=== PATIENT | female | born 1965 ===

== ENCOUNTER 2023-07-15 06:30 | Day surgery (SDC) | payer OTHER ==
[~2023-07-15] VITALS: Ht 177.8 cm; Wt 141.8 kg
[~2023-07-15 06:30] MED LIST: CARAFATE1 GM PO; COLESTIPOL HCL1 GM PO; DICLOFENAC SODI75 MG PO; LEVOTHYROXINE200 MCG PO; LEXAPRO20 MG PO; LIPITOR40 MG PO; METFORMIN HCL1000 M1 PO; OMEPRAZOLE20 MG PO; TRAZODONE HCL100 MG PO; VICTOZA 2-0.6 MG/0.1 SUB-Q
[2023-07-15 06:48] VITALS: BP 141/95
[2023-07-15] MEDS ORDERED: OZEMPIC1 MG/0.71 SQ (06:55)
[2023-07-15] MEDS ORDERED: PERCOCET 5-3251 EACH PO (06:56)
--- NOTE | 2023-07-15 08:15 | NUR ---
07/15/23 0815 Vannessa Sifuentes 0810: PT ARRIVES TO PACU AWAKE AND ALERT. NO COMPLAINTS OF PAIN OR NAUSEA. SHE IS ENCOURGAED TO COUGH AND DEEP BREATH. O2 SAT ON 3L VIA NC 90-92%.
[2023-07-15 08:58] VITALS: BP 163/96
--- NOTE | 2023-07-15 11:43 | OR ---
[facility] [address] [place], [place] [address] Signed DATE OF OPERATION: 07/15/2023 SURGEON: Folry Thrasher MD PREOPERATIVE DIAGNOSES: 1. Gastroesophageal reflux. 2. Colon screening. POSTOPERATIVE DIAGNOSES: 1. Hiatal hernia with distal esophagitis and focus of Griffin's epithelium. 2. Mild proximal gastritis. 3. Polyps x2 of sigmoid colon. PROCEDURES: 1. Esophagogastroduodenoscopy with biopsy. 2. Total colonoscopy to cecum with cold morcellation polypectomy x2. ANESTHESIA: Intravenous sedation; fentanyl 150 mcg, Versed 6 mg. INDICATION: This 58-year-old white woman is a patient of Fred Ramirez. She is referred for upper endoscopy and colonoscopy on the basis of long-standing gastroesophageal reflux. She currently takes PPI medication daily. Additionally, she has had fecal urgency of unknown origin, considered to have diabetes. She does use metformin. She is obese at 312 pounds with BMI of 44.8. She occasionally has left lower abdominal pain as well. She is admitted at this time to undergo upper endoscopy and colonoscopy. She understands the risk of bleeding, infection, and perforation. FINDINGS: Upper endoscopy confirmed a hiatal hernia as well as mild distal esophagitis and a focus of Griffin's epithelium. There was proximal gastritis as well. CLOtest was negative 30 minutes post procedure. On colonoscopy, the prep was quite good. Complete colonoscopy was undertaken with intubation of the cecum. There were two very small polyps in the sigmoid, which were excised. DESCRIPTION OF PROCEDURE: The patient was brought to the endoscopy suite and placed in the lateral decubitus Electronically Signed By: FLORY THRASHER MD 07/15/23 1143 PATIENT NAME: GE MARI OPERATIVE REPORT DATE OF : 67 REPORT #: [id number] PHYSICIAN: FLORY THRASHER MD PCP: FRED RAMIREZ PA-C REPORT IS CONFIDENTIAL AND NOT TO BE RELEASED WITHOUT AUTHORIZATION [facility] [address] [place], [place] [address] Signed position, given topical lidocaine anesthesia. Intravenous sedation was administered with full cardiopulmonary monitoring. A bite block was placed. An Olympus video upper endoscope was passed in the hypopharynx. The vocal cords appeared normal. The scope was advanced to the esophagus. Throughout its length, it was normal except in the distal portion where there was a small focus suggestive of Griffin's epithelium. The scope was advanced to the stomach which was insufflated with air. Rugal folds were normal. There was proximal gastritis apparent. The antrum itself was normal. Pylorus was normal. Scope was passed through into the duodenum, which was normal. Biopsies were taken of the duodenum. The scope was withdrawn. Biopsies were taken of more proximal stomach for both APARNA and pathologic testing. Retroflexed view confirmed a hiatal hernia. The scope was withdrawn to the distal esophagus and biopsies taken of that mucosa including the focus of Rgiffin's. The scope was further withdrawn and biopsies were then taken of the mid esophagus. It appeared normal otherwise. The scope was removed. Plans were then made for colonoscopy. Additional sedation was given. A digital rectal examination performed showing no sign of neoplasm. An Olympus video colonoscope was passed in the rectum and manipulated throughout the colon ultimately intubating the cecum itself. The ileocecal valve and appendiceal orifice were normal. The prep was quite good. The scope was withdrawn from that point and examination showed no sign of abnormality until the sigmoid where two small adenomatous appearing polyps were noted. They were both excised with cold morcellation technique and passed in the same container. Further withdrawal allowed for retroflexed view of the rectum, which was normal. Scope was straightened, withdrawn and removed. The patient was taken to the recovery room in good condition. CONCLUDING DIAGNOSES: 1. Proximal gastritis, distal esophagitis and hiatal hernia. 2. Polyps x2 sigmoid. PLAN: Recommend continued use of PPI daily and weight loss efforts. Would consider Carafate 1 g p.o. q.i.d. for four weeks. Would recommend repeat colonoscopy in three years based on findings of two small adenomatous appearing polyps. She will return to the ongoing care of YAMEL Valadez. Flory Thrasher MD Electronically Signed By: FLORY THRASHER MD 07/15/23 1143 PATIENT NAME: GE MARI OPERATIVE REPORT DATE OF : 67 REPORT #: [id number] PHYSICIAN: FLORY THRASHER MD PCP: FRED RAMIREZ PA-C REPORT IS CONFIDENTIAL AND NOT TO BE RELEASED WITHOUT AUTHORIZATION [facility] [address] [facility] [place], [place] [address] [facility] /[id number] cc: YAMEL Valadez Copies: ~ Electronically Signed By: FLORY THRASHER MD 07/15/23 1143 PATIENT NAME: GE MARI OPERATIVE REPORT DATE OF : 67 REPORT #: [id number] PHYSICIAN: FLORY THRASHER MD PCP: FRED RAMIREZ PA-C REPORT IS CONFIDENTIAL AND NOT TO BE RELEASED WITHOUT AUTHORIZATION
--- NOTE | 2023-07-20 14:59 | PATH ---
[facility] [address] [place], [place] [address] Signed SPECIMEN(S): A DUODENAL BIOPSY SPECIMEN(S): B PROXIMAL STOMACH BIOPSY SPECIMEN(S): C LOWER ESOPHAGEAL BIOPSY SPECIMEN(S): D UPPER ESOPHAGEAL BIOPSY SPECIMEN(S): E SIGMOID POLYP SPECIMEN SOURCE: A. DUODENAL BIOPSY B. PROXIMAL STOMACH BIOPSY C. LOWER ESOPHAGEAL BIOPSY D. UPPER ESOPHAGEAL BIOPSY E. SIGMOID POLYP CLINICAL HISTORY: GERD, hx of malignant neoplasm in colon. Hiatal hernia. Griffin's esophagus. Polyps vs sigmoid. FINAL PATHOLOGIC DIAGNOSIS: A. Duodenal biopsy: - Benign duodenal mucosa, negative for specific diagnostic abnormality. B. Proximal stomach biopsy: - Benign gastric-type mucosa with focal slight chronic inflammation. - Negative for evidence of Helicobacter organisms on routine HE-stained sections. C. Lower esophageal biopsy: - Esophageal and gastric-type mucosa with specialized intestinal (goblet cell) metaplasia, negative for dysplasia. D. Upper esophageal biopsy: - Benign esophageal mucosa, negative for increased intraepithelial eosinophils. E. Sigmoid polyp: - Hyperplastic polyp (multiple fragments). JR:ree MICROSCOPIC EXAMINATION: Histologic sections of all submitted blocks are examined by light microscopy. These findings, together with the gross examination, support the pathologic diagnosis. GROSS DESCRIPTION: A. The specimen, labeled and designated "Nicole Perrin, duodenum biopsy," is PATIENT NAME: [facility] DATE OF : 67 REPORT #: [id number] PHYSICIAN: [facility] PCP: FRED RAMIREZ PA-C REPORT IS CONFIDENTIAL AND NOT TO BE RELEASED WITHOUT AUTHORIZATION [facility] [address] [place], [place] [address] Signed received in formalin and consists of three perales soft tissue fragments measuring 0.2 x 0.5 cm in greatest dimension, all specimens are submitted entirely in (A1). B. The specimen, labeled and designated "Nicole Perrin, proximal stomach biopsy," is received in formalin and consists of one perales soft tissue fragment measuring 0.4 x 0.5 cm and is submitted entirely in (B1). C. The specimen, labeled and designated "Nicole Perrin, lower esophagus biopsy," is received in formalin and consists of two perales soft tissue fragments measuring 0.4 x 0.4 cm in greatest dimension, both specimens are submitted entirely in (C1). D. The specimen, labeled and designated "Nicole ePrrin, upper esophagus biopsy," is received in formalin and consists of four white soft tissue fragment measuring 0.3 x 0.8 cm in greatest dimension, all specimens are submitted entirely in (D1). E. The specimen, labeled and designated "Nicole Perrin, colon, sigmoid polypectomy," is received in formalin and consists of three perales soft tissue fragments measuring 0.3 x 0.5 cm in greatest dimension, all specimens are submitted entirely in (E1). MMA (under the direct supervision of a pathologist) The Gross Description was prepared using a voice recognition system. The report was reviewed for accuracy; however, sound-alike word errors, addition and/or deletions may occur. If there is any question about this report, please contact Client Services. PERFORMING LABORATORY: Technical component was performed by [facility], [address] [place] [id number] (CLIA# [id number]). Professional interpretation was performed by [facility] - [facility], [address] [place] [address], [place] [address] (CLIA#: [id number]). Diagnostician: Sean Weaver MD Pathologist Electronically Signed 07/20/2023 Copies: ~ PATIENT NAME: GE [facility]ERRIN [facility] DATE OF : 67 REPORT #: [id number] PHYSICIAN: [facility] PCP: FRED RAMIREZ PA-C REPORT IS CONFIDENTIAL AND NOT TO BE RELEASED WITHOUT AUTHORIZATION
== END 2023-07-15 09:20 | disposition home or self-care (01) ==
LOC: OPS 06:30 → DS 06:30 → OPS 07:30 → DS 10:00 → OPS 10:00
PROVIDERS: ATTEND Surgery
PROC: 0DB68ZX Excision of Stomach, Via Natural or Artificial Opening Endoscopic, Diagnostic (ICD-10-PCS; 2023-07-15)
PROC: 0DBN8ZZ Excision of Sigmoid Colon, Via Natural or Artificial Opening Endoscopic (ICD-10-PCS; principal; 2023-07-15 07:30)
PROC: 0DB98ZX Excision of Duodenum, Via Natural or Artificial Opening Endoscopic, Diagnostic (ICD-10-PCS; 2023-07-15 07:30)
DX: Z12.11 Encounter for screening for malignant neoplasm of colon (principal); K21.00 Gastro-esophageal reflux disease with esophagitis, without bleeding; Z85.850 Personal history of malignant neoplasm of thyroid; E11.9 Type 2 diabetes mellitus without complications; K29.70 Gastritis, unspecified, without bleeding; K63.5 Polyp of colon
CPT/HCPCS: 99153; G0500; J2250; J3010; J7121